=== PATIENT | female | born 1975 | race Caucasian/White ===

== ENCOUNTER → 2018-08-24 | Outpatient (CLI) | payer OTHER ==
[~2018-08-24] MED LIST: GADOBUTROL 10 ML VIAL IVP ONE
== END ==
LOC: FIMAGING 11:24
PROVIDERS: ATTEND Internal Medicine Hematology & Oncology
DX: C82.38 Follicular lymphoma grade IIIa, lymph nodes of multiple sites (principal); G40.89 Other seizures
CPT/HCPCS: A9585

== ENCOUNTER → 2018-09-23 | Outpatient (CLI) | payer OTHER ==
--- NOTE | 2018-09-24 11:32 | CPEEG ---
[f rep st] ELECTROENCEPHALOGRAM 4-HOUR VIDEO EEG DATES OF STUDY: September 23, 2018 DATE OF INTERPRETATION: September 24, 2018 INTERPRETATION: This 4-hour video EEG recording is normal. There were no potentially epileptogenic abnormalities present during the recording. None present during the awake or sleep recordings. The patient did not have any clinical events during the video EEG monitoring session. REPORT: This 4-hour video EEG contains 10 Hz alpha activity over the posterior head regions. There was no abnormal activation at rest, during photic stimulation or hyperventilation. The patient becam e drowsy and fell into sustained sleep during the recording. There was no abnormal activation during drowsiness, sleep or during times of arousal. The patient did not have any clinical events during t he video EEG monitoring session. /[id number]/MODL
== END ==
LOC: FCPNEURO 10:19
PROVIDERS: ATTEND Psychiatry & Neurology Neurology
DX: R40.20 Unspecified coma (principal)